=== PATIENT | female | born 1995 | race Caucasian/White ===

== ENCOUNTER 2020-07-21 08:38 | Emergency (ER) | payer OTHER, SELFPAY ==
[2020-07-21 08:46] VITALS: BP 138/73; PULSE 85; RESP 16; TEMP 36.3; O2SAT 99; BMI 35.2
--- NOTE | 2020-07-21 08:57 | ED.GIBLEED ---
HPI - GI Bleed General Chief complaint: GI Bleed Stated complaint: hemroids Time Seen by Provider: 07/21/20 08:40 Source: patient Mode of arrival: Ambulatory Limitations: no limitations History of Present Illness HPI Narrative: 25F nonsmoker, at 20 weeks with painful hemorrhoid since last night. She denies any abdominal pain, straining on the toilet, constipation, or other symptoms. She's had no vaginal bleeding, discharge, or other. She had a hemorrhoid which was poking out but she was able to push it back in yesterday. Related Data Previous Rx's Medication Instructions Recorded hydrocortisone acetate [Anusol-HC] 25 mg FL BID #24 ea 07/21/20 Allergies Allergy/AdvReac Type Severity Reaction Status Date / Time No Known Drug Allergies Allergy Verified 07/21/20 08:50 Review of Systems Constitutional Constitutional: Denies chills, Denies fatigue, Denies fever(s), Denies frequent falls, Denies lethargy and Denies weakness Eyes Eyes: Denies change in vision, Denies eye discharge, Denies irritation and Denies loss of vision ENT Ears, Nose, Mouth, and Throat: Denies change in voice, Denies dizziness, Denies neck pain, Denies sore throat and Denies throat swelling Cardiovascular Cardiovascular: Denies chest pain, Denies irregular heart rhythm, Denies lightheadedness, Denies palpitations, Denies dyspnea, Denies dyspnea on exertion and Denies orthopnea Respiratory Respiratory: Denies cough, Denies dyspnea, Denies dyspnea on exertion and Denies wheezing Gastrointestinal Gastrointestinal: Denies abdominal pain, Denies change in bowel habits, Denies diarrhea, Denies nausea and Denies vomiting Comments: rectal pain, hemorrhoid Musculoskeletal Musculoskeletal: Denies neck pain and Denies numbness Integumentary/Breasts Skin/Breast: Denies pruritus, Denies erythema, Denies rash and Denies wounds Neurologic Neurologic: Denies behavioral changes, Denies confusion, Denies dizziness, Denies frequent falls, Denies loss of vision, Denies numbness and Denies weakness Psychiatric Psychiatric: Denies anxiety, Denies behavioral changes, Denies confusion, Denies depression, Denies homicidal ideation and Denies suicidal ideation Endocrine Endocrine: Denies fatigue, Denies flushing and Denies palpitations Hematologic/Lymphatic Hematologic/Lymphatic: Denies easy bruising Allergic/Immunologic Allergic/Immunologic: Denies urticaria, Denies throat swelling and Denies wheezing Patient History Social History Smoking Status: Never smoker Smoking Status: Never smoker Substance Use Type: does not use Exam Narrative Exam Narrative: GEN: AOx3 and in mild distress EYES: Pupils are equal, round, and reactive to light and accommodation. Extraoccular muscles are intact bilaterally. There is no subconjunctival hemorrhage or exudate. CHEST: Lungs are clear to auscultation bilaterally and free of wheezes, rales, or rhonchi. Heart rate is regular rhythm, there are no murmurs, clicks, rubs, or gallops. There is no chest wall tenderness. ABD: Abdomen is soft and nontender. There is no guarding or rebound. Bowel sounds are normal in all 4 quadrants. There is no mass or organomegaly. RECAL: tender to exam. No external hemorrhoid, no bleeding. No fissure. Possible small internal hemorrhoid. EXT: Full painless ROM of all extremities with no loss of sensation or strength. SKIN: Warm, pink, and dry. No erythema or rash Initial Vital Signs Initial Vital Signs: Vital Signs Temperature 97.4 F L 07/21/20 08:46 Pulse Rate 85 07/21/20 08:46 Respiratory Rate 16 07/21/20 08:46 Blood Pressure 138/73 07/21/20 08:46 Pulse Oximetry 99 07/21/20 08:46 Course Vital Signs Vital signs: Vital Signs - 8 hr 07/21/20 08:46 Temperature 97.4 F L Pulse Rate 85 Respiratory Rate 16 Blood Pressure 138/73 Pulse Oximetry 99 Discharge Plan Departure Patient Disposition: Home Clinical Impression: Hemorrhoids Qualifiers: Hemorrhoid type: unspecified Qualified Code(s): K64.9 - Unspecified hemorrhoids Instructions: DI for Hemorrhoids Activity Restrictions/Additional Instructions: *You have been diagnosed with [hemorrhoid] *What to do: *Take medications as directed. Stay well hydrated and consider taking a stool softener as any intra-abdominal pressure increases can make you more likely to develop an external hemorrhoid *Follow up with your primary care provider in 2-3 days, call for an appointment. Let them know you were seen in the Emergency Department and that we ask that you be seen in follow up *Return to ER if you should have any new, worsening or concerning symptomss Prescriptions: New hydrocortisone acetate [Anusol-HC] 25 mg suppository 25 mg FL BID Qty: 24 RF: 0
--- NOTE | 2020-07-21 09:08 | PC.NURSE ---
stand by for rectal exam. Patient tolerated well.
== END 2020-07-21 09:21 | disposition home or self-care (01) ==
PROVIDERS: Emergency Provider Emergency Medicine
DX: O22.42 Hemorrhoids in pregnancy, second trimester (principal); Z3A.20 20 weeks gestation of pregnancy
CPT/HCPCS: 99281

== ENCOUNTER → 2020-10-24 09:52 | Outpatient (CLI) | payer OTHER, SELFPAY ==
--- NOTE | 2020-10-24 09:54 | DI.US.S_ITS ---
PROCEDURE: US OB LIMITED INDICATIONS: SIZE AND FOLLOW UP OUTFLOW TRACTS OUTSIDE/PRIOR DATING DATA: Last menstrual period (LMP): 03/02/20. LMP-based estimated date of delivery (TING): 12/07/20 . Outside reported OB ultrasound 07/24/20. Delivery date reportedly from that study 12/03/20. TECHNIQUE: Real-time scanning was performed of the fetus, with image documentation and biometric measurements. Endovaginal scanning: Not needed COMPARISON: [facility], , OB > 14 WEEKS, 07/24/2020, 7:55. FINDINGS: General: A single living intrauterine gestation is present. Presentation: Vertex. Placenta: Placental position is posterior , without previa. Amniotic fluid index: 9.1 cm, normal range is 5-24 cm. heart rate: 144 beats per minute. Maternal cervical canal: Not well seen due to positioning. biometrics: Biparietal diameter: 8.1 cm, 32 weeks 3 days Head circumference: 29.9 cm, 33 weeks 1 day Abdominal circumference: 30.5 cm, 34 weeks 3 days Femur length: 6.5 cm, 33 weeks 4 days Estimated gestational age from initial scan: 34 weeks 2 days Composite gestational age from present scan: 33 weeks 3 days Estimated weight and percentile: 2295 g, 30 second percentile Measurement variability for biometric dating: +/- 7 days from 14 weeks to 15 weeks 6 days gestation, +/- 10 days from 16 weeks to 21 weeks 6 days gestation, +/- 2 weeks from 22 weeks to 27 weeks 6 days gestation, +/- 3 weeks for 28 weeks gestation or later. weight reference: 4500 g or EFW >90/95% is considered macrosomia or large for gestational age. EFW <10% is small for gestational age. EFW 5% or less is considered intra-uterine growth restriction. Other: Not applicable. IMPRESSION: Appropriate interval growth, no anomaly seen. Normal left ventricular outflow tracts, limited normal visualization of the right ventricular outflow tracts. The delivery date is projected to be centered on 12/03/20. Dictated by: Deondre Stanley M.D. on 10/24/2020 at 14:12 Approved by: Deondre Stanley M.D. on 10/24/2020 at 14:17
== END ==
PROVIDERS: PCP Family Medicine; Referring Provider Family Medicine; Visit Provider Family Medicine
DX: Z36.2 Encounter for other antenatal screening follow-up (principal); Z3A.33 33 weeks gestation of pregnancy
CPT/HCPCS: 76815

== ENCOUNTER → 2020-11-07 10:35 | Outpatient (CLI) | payer OTHER, SELFPAY ==
[2020-11-07 12:13] LABS: Alanine Aminotransferase 13 IU/L (<35); Albumin 3.4 g/dL (3.5-5.0); Albumin Globulin Ratio 1.1 (1.0-2.8); Alkaline Phosphatase 169 U/L (38-126); Aspartate Aminotransferase 21 IU/L (14-36); Bilirubin Total 0.2 mg/dL (0.2-1.3); Bilirubin Unconjugated 0.2 mg/dL (0.0-1.1); HEMOLYSIS < 15 (0-50); Total Protein 6.4 g/dL (6.3-8.2)
[2020-11-08 10:10] LABS: Bile Acids 3.4 umol/L (0.0-10.0)
== END ==
PROVIDERS: PCP Family Medicine; Referring Provider Family Medicine; Visit Provider Family Medicine
DX: Z34.90 Encounter for supervision of normal pregnancy, unspecified, unspecified trimester (principal)
CPT/HCPCS: 36415; 80076; 82239

== ENCOUNTER → 2020-11-14 08:36 | Outpatient (CLI) | payer OTHER, SELFPAY ==
[2020-11-15 14:56] LABS: Strep Grp B PCR NEG for Grp B Strep
== END ==
PROVIDERS: PCP Family Medicine; Visit Provider Family Medicine
DX: Z34.83 Encounter for supervision of other normal pregnancy, third trimester (principal); Z3A.36 36 weeks gestation of pregnancy
CPT/HCPCS: 87653

== ENCOUNTER 2020-11-27 21:15 | Inpatient (IN) | payer OTHER, SELFPAY ==
[2020-11-27] MEDS: LACTATED RINGERS 1,000 ML 100 ML IV (22:10)
[2020-11-27 22:24] LABS: COVID19 -Nasal RAPID Negative (Negative)
[2020-11-27 22:32] LABS: Add Manual Diff / Slide Review NO; Basophils Absolute Auto 100 /uL (0-100); Basophils Percent Auto 0.7 % (0-2); Eosinophils Absolute Auto 100 /uL (0-450); Eosinophils Percent Auto 1.5 % (2-4); Hematocrit 36.3 % (36-46); Hemoglobin 11.7 g/dL (12.0-16.0); Lymphocytes Absolute Auto 2200 /uL (1100-4500); Mean Corpuscular HGB Conc 32.1 % (30-36); Mean Corpuscular Hemoglobin 24.5 PG (26-34); Mean Corpuscular Volume 76.3 fL (80-100); Monocytes Absolute Auto 500 /uL (0-900); Monocytes Percent Auto 5.5 % (3-14); Neutrophils Absolute Auto 5600 /uL (1500-7000); Neutrophils Percent Auto 66.3 % (50-75); Platelet Count 297 X10^3/uL (150-400); Red Blood Cell Count 4.76 X10^6/uL (4.0-5.2); Red Cell Distribution Width 14.2 % (11.6-14.8); White Blood Cell Count 8.4 X10^3/uL (4.5-11.0)
--- NOTE | 2020-11-28 00:43 | P.HP_ITS ---
History of Present Illness History of Present Illness Date Patient Seen: 11/28/20 Time Patient Seen: 00:44 Chief complaint: observation of labor Narrative: 25-year-old G2 para 1 estimated due date 12/07/2020 consistent with LMP which puts her at 38 weeks and 5 7 days. Patient presents to the labor and delivery floor and labor. Patient states contractions began mid morning. Started out every 15 minutes. Progressed throughout the day to tele every for 4-5 minutes when she was here to the hospital coming in. She said that she was feeling fine other than her contractions. She has had no fevers chills headache nausea. No loss of fluid. On evaluation by the nurse in the labor and delivery for she was found to be 3 cm effaced heart tones were reassuring and in active labor. Admission orders were written for and patient was admitted to the labor and delivery for. On arrival her vital signs were stable. She was afebrile. She was not ruptured. labs were reviewed by me and initial blood testing was done including CBC and COVID testing. Patient was a late transfer of care at 33 weeks from the [facility]. Patient had routine follow-up. Patient care complicated by obesity with a BMI of 34.8 and late care. Previous delivery at 41 weeks of 7 lb 7 oz male. She is here with her partner and Zuhair. Patient has no significant past medical history. No significant surgical history family history of hypertension social history patient does not smoke or use recreational drugs. labs white blood cell count 8.1 hemoglobin 12.4 platelet count 325 glucose 105 urinalysis negative for infection antibody screen negative blood type O positive antibody screen negative hepatitis as a B and hepatitis-C negative varicella immune rubella immune so fullest nonreactive quad screen within normal limits YOSEPH prep negative GC chlamydia negative HIV negative. Patient History Medical History Obesity (BMI 30.0-34.9) Surgical History [place] teeth extracted (~2014) Family & Social History Family History Mother Breast mass in female Father Hypertension Grandmother No problems noted. Grandfather No problems noted. Grandmother No problems noted. Grandfather Diabetes mellitus Amputation below knee Sister Chronic eczema Social History: household members spouse,children lives independently Yes caregiver/support person No Tobacco & Substance use: Smoking Status Never smoker alcohol intake former Substance Use Type does not use Meds Home Medications and Allergies Home Medications Medication Instructions Recorded Confirmed Type prenat.vits,leah,[id number] 1 tab PO DAILY 10/15/20 11/27/20 History Allergies Allergy/AdvReac Type Severity Reaction Status Date / Time No Known Drug Allergies Allergy Verified 11/27/20 21:48 Exam Vital Signs (past 8 hours): . General: Alert no apparent distress. Affect is appropriate. Cyn it is uncomfortable. HEENT: Neck is supple without lymphadenopathy pupils equal round and reactive. Cardio: S1-S2 regular rate and rhythm. Respiratory: Lungs clear to auscultation. Abdomen: Gravid. Extremities: Normal deep tendon reflexes trace edema. [place]: [Cyn regularly every 3-5 minutes with 60 minute contractions moderate and strength.] heart tones: Category 1 tracing 145 baseline heart rate Objective Labs Result Diagrams: 11/27/20 22:05 Labs: Laboratory Results - last 24 hr 11/27/20 11/27/20 11/27/20 22:05 22:05 22:05 WBC 8.4 RBC 4.76 Hgb 11.7 L Hct 36.3 MCV 76.3 L MCH 24.5 L MCHC 32.1 RDW 14.2 Plt Count 297 Neut % (Auto) 66.3 Lymph % (Auto) 26.0 [place] % (Auto) 5.5 Eos % (Auto) 1.5 L Baso % (Auto) 0.7 Neut # (Auto) 5600 Lymph # (Auto) 2200 [place] # (Auto) 500 Eos # (Auto) 100 Baso # (Auto) 100 SARS-CoV-2 (PCR) Negative Blood Type O Positive Antibody Screen Negative Assessment & Plan Assessment & Plan narrative: 25-year-old G2 para 1 at term in active labor. On my evaluation patient is now 9 cm. Category 1 tracing vital signs are stable she is afebrile. She appears to have had spontaneous rupture of membranes with clear fluid. She now has an epidural in and is comfortable. Continue with present care and management. labs history records were reviewed. Consents were obtained.
[2020-11-28] MEDS: OXYTOCIN 10 UNIT/ML VIAL IM (01:10)
--- NOTE | 2020-11-28 01:14 | PM.PROC.1 ---
Procedures Date/Time Date of procedure: 11/28/20 Time of procedure: 01:14 General Procedure description: Female infant born vaginally Stage I of labor: Approximately 4 hours. Patient presented to labor and delivery floor at 3 cm. Category 1 tracing vital signs are stable afebrile GBS status is negative. During stage I of labor patient made good progression. Requesting an epidural for anesthesia patient good had good anesthetic results. Patient made good progress during stage I with normal vital signs and normal temperature category 1 category 2 tracing at times. Patient labored continuously without Pitocin. After her epidural she was found to be 9 cm. She spontaneous rupture of clear fluid. She then became complete. Stage II of labor: Approximately 10 minutes. Category 1 tracing. Patient had category 1 tracing during stage II of labor. Baby made good descent through the canal. Mom pushed very effectively during the time of descent. Baby tolerated stage II well. At the delivery of the baby's head baby was found to be in the vertex position. Occiput anterior. At the delivery of the head. With a mild head repositioning bit baby delivered spontaneously without difficulty. Baby was placed on mother's abdomen had good cry. There was no nuchal cord. Stage III of labor 10 minutes. Patient was given IM Pitocin 10 units after delivery of baby. Baby had delivery of intact placenta with three-vessel cord. Patient had estimated blood loss of about 250-300 cc without the difficulty. Afterwards there was a small amount of bleeding which was improved with fundal massage. Inspection of the cervix and vagina showed no significant lacerations or tears. Placenta was evaluated and found to be intact and a 3 vessel cord. Mom and baby resting comfortably afterwards baby's Apgars were 8 and 9.
[2020-11-28] MEDS: IBUPROFEN 600 MG TABLET PO ×3 (03:44→18:43)
[2020-11-28] MEDS: ACETAMINOPHEN 325 MG TABLET 650 MG PO ×2 (08:06→14:30)
[2020-11-28] MEDS: PRENATAL VIT,CALC/IRON/FOLIC 1 TABLET 1 TAB PO (08:07)
[2020-11-28] MEDS: DOCUSATE 100 MG CAPSULE PO (08:07)
--- NOTE | 2020-11-28 08:37 | P.PN_ITS ---
Subjective Subjective Date Patient Seen: 11/28/20 Time Patient Seen: 08:37 Interval history: Patient is day 1. Vaginal delivery. Doing well. More abdominal uterus cramping than she anticipated ibuprofen helps. Bleeding is anticipated. Up walking. Has been to the bathroom. Eating breakfast. No nausea no headaches no blurry vision. She is anticipating breast-feeding. Vital signs have been stable. Exam Vital Signs (past 8 hours): General: Alert no apparent distress. Affect is appropriate. Cyn it is uncomfortable. HEENT: Neck is supple without lymphadenopathy pupils equal round and reactive. Cardio: S1-S2 regular rate and rhythm. Respiratory: Lungs clear to auscultation. Abdomen: Uterus firm. Incision clean dry and intact. Extremities: Normal deep tendon reflexes trace edema. Objective Labs Result Diagrams: 11/27/20 22:05 Labs: Laboratory Results - last 24 hr 11/27/20 11/27/20 11/27/20 22:05 22:05 22:05 WBC 8.4 RBC 4.76 Hgb 11.7 L Hct 36.3 MCV 76.3 L MCH 24.5 L MCHC 32.1 RDW 14.2 Plt Count 297 Neut % (Auto) 66.3 Lymph % (Auto) 26.0 [place] % (Auto) 5.5 Eos % (Auto) 1.5 L Baso % (Auto) 0.7 Neut # (Auto) 5600 Lymph # (Auto) 2200 [place] # (Auto) 500 Eos # (Auto) 100 Baso # (Auto) 100 SARS-CoV-2 (PCR) Negative Blood Type O Positive Antibody Screen Negative [facility] Medical History Obesity (BMI 30.0-34.9) Surgical History [place] teeth extracted (~2014) Family History Mother Breast mass in female Father Hypertension Grandmother No problems noted. Grandfather No problems noted. Grandmother No problems noted. Grandfather Diabetes mellitus Amputation below knee Sister Chronic eczema Social History marital status: number of children: 1 household members: spouse and children (1 year old son. 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 Goes to park, walks, etc. but not every day.) frequency: 3-4 times per week duration: 30-45 minutes/day Assessment & Plan Assessment & Plan narrative: day 1. Vaginal delivery Patient is doing well today. Some mild crampy abdominal pain. Ibuprofen is working well for her. Bleeding is anticipated. Urination is good. She is breast-feeding. Vital signs have been stable. Continue with current care. Activity as tolerated diet as tolerated.
[2020-11-29 06:25] LABS: Hematocrit 33.9 % (36-46); Hemoglobin 10.9 g/dL (12.0-16.0)
[2020-11-29] MEDS: DOCUSATE 100 MG CAPSULE PO (08:32)
[2020-11-29] MEDS: PRENATAL VIT,CALC/IRON/FOLIC 1 TABLET 1 TAB PO (08:33)
[2020-11-29] MEDS: IBUPROFEN 600 MG TABLET PO (08:33)
--- NOTE | 2020-11-29 13:17 | PM.DS.1 ---
History of Present Illness History of Present Illness Chief complaint: MATERNITY Narrative: 25-year-old G2 para 1 estimated due date 12/07/2020 consistent with LMP which puts her at 38 weeks and 5 7 days. Patient presents to the labor and delivery floor and labor. Patient states contractions began mid morning. Started out every 15 minutes. Progressed throughout the day to tele every for 4-5 minutes when she was here to the hospital coming in. She said that she was feeling fine other than her contractions. She has had no fevers chills headache nausea. No loss of fluid. On evaluation by the nurse in the labor and delivery for she was found to be 3 cm effaced heart tones were reassuring and in active labor. Admission orders were written for and patient was admitted to the labor and delivery for. On arrival her vital signs were stable. She was afebrile. She was not ruptured. labs were reviewed by me and initial blood testing was done including CBC and COVID testing. Patient was a late transfer of care at 33 weeks from the [facility]. Patient had routine follow-up. Patient care complicated by obesity with a BMI of 34.8 and late care. Previous delivery at 41 weeks of 7 lb 7 oz male. She is here with her partner and Zuhair. Patient has no significant past medical history. No significant surgical history family history of hypertension social history patient does not smoke or use recreational drugs. labs white blood cell count 8.1 hemoglobin 12.4 platelet count 325 glucose 105 urinalysis negative for infection antibody screen negative blood type O positive antibody screen negative hepatitis as a B and hepatitis-C negative varicella immune rubella immune so fullest nonreactive quad screen within normal limits YOSEPH prep negative GC chlamydia negative HIV negative. Discharge Providers Provider Date of admission: 11/27/20 21:15 Discharge Date: 11/29/20 Primary care physician: Mayo Malcolm MD Consults: 11/27/20 21:45 Consult to Anesthesiology Urgent Comment: Consulting Provider: Anesthesiologist Reason for consultation: labor epidural 11/29/20 01:22 Consult to Public Transportation Inspector Routine Comment: Discharge provider: Mayo Malcolm MD Summary Hospital Course Discharge Diagnosis: G2 para 139 weeks gestational age in active labor delivery of viable infant vaginally Routine care Hospital Course: Patient presented in active labor to labor and delivery floor. Patient went on and progressed to deliver a viable female vaginally. Patient had routine care. Postoperative day 1. She was ambulating tolerating diet bleeding was well controlled. Hemoglobin hematocrit was stable breast-feeding was going well. Tolerating her diet. Patient had mild lower extremity edema. No calf tenderness Objective Labs Result Diagrams: 11/29/20 06:17 Labs: Laboratory Results - last 24 hr 11/29/20 06:17 Hgb 10.9 L Hct 33.9 L PFSH Medical History Obesity (BMI 30.0-34.9) Surgical History [place] teeth extracted (~2014) Family History Mother Breast mass in female Father Hypertension Grandmother No problems noted. Grandfather No problems noted. Grandmother No problems noted. Grandfather Diabetes mellitus Amputation below knee Sister Chronic eczema Social History marital status: number of children: 1 household members: spouse and children (1 year old son. 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 Goes to park, walks, etc. but not every day.) frequency: 3-4 times per week duration: 30-45 minutes/day Discharge Plan Discharge Plan Patient Disposition: Home Discharge orders & Medications Prescriptions: New docusate sodium [DOK] 100 mg Capsule 100 mg PO DAILY Qty: 30 RF: 0 ibuprofen 600 mg Tablet 600 mg PO Q6HR PRN (Reason: Pain, Mild (1-3)) Qty: 30 RF: 0 Continued prenat.vits,leah,[id number]-gssyx Tablet 1 tab PO DAILY RF: 0 Follow up/Referrals: Mayo Malcolm MD [Primary Care Provider] - (Appointment Thursday,December at 10:30 am with ; 6 week check) Visit Report/Discharge Packet Instructions: DI for Labor and Delivery, Vaginal Visit Report Forms: Patient Portal/API, Stroke Signs & Symptoms Discharge Data Primary Care Provider: Mayo Malcolm Discharges patient from system. Discharge Date/Time: 11/29/20 11:25
== END 2020-11-29 11:25 | disposition home or self-care (01) | DRG 807 ==
PROVIDERS: Admitting Provider Family Medicine; PCP Family Medicine; Referring Provider Family Medicine; Visit Provider Family Medicine
DX: O99.214 Obesity complicating childbirth (principal); Z37.0 Single live birth; Z3A.38 38 weeks gestation of pregnancy; Z20.822 Contact with and (suspected) exposure to COVID-19
CPT/HCPCS: 01967; 36415; 59025; 59050; 59410; 85014; 85018; 85025; 86850; 86900; 86901; 87635; C9803; G0379; J2590

== ENCOUNTER 2022-12-17 06:49 | Day surgery (SDC) | payer OTHER, SELFPAY ==
[2022-12-11 13:39] VITALS: BMI 34.2
[2022-12-17] VITALS (9 sets, daily range): BP systolic 100–107; BP diastolic 58–76; PULSE 59–87; RESP 12–18; TEMP 36.4–36.6; O2SAT 96–100; BMI 34.2
--- NOTE | 2022-12-17 | PATH_ITS ---
[facility] Accession Number: [id number] No. of containers..01 Tissue . 01 Material submitted: . appendix - APPENDIX . 01 Diagnosis: Appendix, Appendectomy: Appendix with grossly obstructing fecalith. No active inflammation identified. No evidence of neoplasm. MRV 12/24/2022 1548 Local . 01 Electronically signed: . Shyam Barry MD, PhD, Pathologist NPI- [id number] . 01 Gross description: . The specimen is received in formalin labeled with the patient's name, , and appendix, and consists of a vermiform appendix measuring 5.9 x 0.7 cm with nuñez smooth serosa and mesoappendix extending out to 1.8 cm. The margin is closed with jarvis, is inked blue, and sectioning reveals the lumen to be grossly obstructed by a brown firm structure consistent with fecalith measuring 3.3 cm in greatest dimension. The douglas are nuñez and intact, and average 0.2 cm thick with no lesions or perforations identified. Sheeting Puller sections are submitted in cassette A1. ([id number]) /MRV 12/24/2022 1528 Local . 01 Pathologist provided ICD-10: R10.9, K38.1 . 01 CPT . 886363 Specimen Comment: A courtesy copy of this report has been sent to [phone] Performed at: 01 [facility] [address] [place] [address], [place], [place] [id number] MD Zuhair Simmons MD Phone: [phone]
--- NOTE | 2022-12-17 07:36 | PM.HP.1 ---
History of Present Illness History of Present Illness Date Patient Seen: 12/17/22 Time Patient Seen: 07:36 Chief complaint: SDC Narrative: 27-year-old woman who had appendicitis several months ago here for interval appendectomy today. She is feeling well no patient complaints. No interval changes in health. Please refer to the H and P from July 2022 for further detail. [facility] Medical History Obesity (BMI 30.0-34.9) Surgical History Irene teeth extracted (~2014) Family History Mother Breast mass in female Father Hypertension Grandmother No problems noted. Grandfather No problems noted. Grandmother No problems noted. 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 Goes to park, walks, etc. but not every day.) frequency: 3-4 times per week duration: 30-45 minutes/day Meds Home Medications and Allergies Allergies Allergy/AdvReac Type Severity Reaction Status Date / Time No Known Drug Allergies Allergy Verified 12/17/22 07:11 Exam Vital Signs (past 8 hours): - 12/17/22 07:26 Temperature 97.5 F L Pulse Rate 68 Respiratory Rate 17 Blood Pressure 105/73 Pulse Oximetry 97 Oxygen Delivery Method Room Air Oxygen Delivery Method Room Air Narrative Exam Narrative: General adult woman alert oriented no acute distress Chest nonlabored respiration Abdomen soft nontender nondistended Extremities warm well perfused Assessment & Plan Assessment and plan (1) Appendicitis: Qualifiers: Appendicitis type: acute appendicitis Acute appendicitis type: unspecified acute appendicitis type Qualified Code(s): K35.80 - Unspecified acute appendicitis Status: Acute Assessment & Plan narrative: 27-year-old woman with resolved appendicitis here for interval appendectomy. Overview of the operation was discussed with the patient. Operative risks including hemorrhage, infection, damage to surrounding structures were discussed. Questions have been answered she is in agreement with this plan.
--- NOTE | 2022-12-17 08:20 | SUR.OPER ---
Supine on padded OR bed, head on pillow, arms padded and tucked at sides, legs uncrossed, safety belt at thigh, tape over blanket over lower legs .
[2022-12-17] MEDS: BUPIVACAINE 0.25% (PF) VIAL 30 ML INJ (08:28)
--- NOTE | 2022-12-17 09:13 | PM.OP.1 ---
Operative Date/Time/Diagnoses Date of procedure: 12/17/22 Time of procedure: 09:13 Pre-op diagnosis: History of appendicitis Post-op diagnosis: same Procedure & Clinicians Procedure: Interval laparoscopic appendectomy Same procedure as scheduled: Yes Indications: 27-year-old woman who had appendicitis treated with antibiotic therapy here for interval appendectomy. Surgeon: Adalid Pyle Senior Architectural Designer: Warren Odonnell Operative Notes Findings: evidence of prior appendicitis without acute findings Specimen(s): other (Appendix) Estimated Blood Loss (mL): 20 Procedure in detail: Patient was brought to the operating room placed supine on the table. Bilateral lower extremity compression devices were applied. Anesthesia was induced and they intubated with an endotracheal tube. They received 3.375 g of Zosyn prior to skin incision. The left arm was tucked and appropriately padded. They were prepped and draped in sterile fashion. Time-out was performed. An infraumbilical incision was made the umbilical stalk was grasped and elevated and incision was made and the abdomen was entered atraumatically. A 12 mm balloon trocar was then placed through the incision and pneumoperitoneum of 14 mm Hg was established. The scope was then inserted and the abdomen inspected, there was no evidence of injury upon entry. Two 5 mm ports were placed under direct visualization, one in the left lower quadrant and second in the lower midline. A thorough laparoscopic evaluation was performed inspecting all four quadrants. The patient was then tilted right side up. The small bowel was then swept to the upper aspect of the abdomen. The tenie were followed to the base of the cecum where the appendix was identified. The appendix appeared to have been previously infected as were adhesions between the appendix and the anterior abdominal wall which were sharply lysed. The mesentery to the appendix was divided with [place] electrocautery. The appendix was then amputated flush at the cecum using the endo-stapler blue load. The specimen was retrieved using a endoscopic retrieval bad through the 10 mm infra-umbilical port. The right paracolic gutter and the pouch of Will were irrigated The 5 mm ports were then removed under direct visualization. The umbilical fascial incision was closed with 0 Vicryl in a figure-eight fashion. The skin wounds were irrigated and closed with 4-0 Monocryl followed by the application of Dermabond. Sponge instrument count at the end of the operation was correct. The patient tolerated procedure well was extubated and transferred to the postoperative care unit in stable condition. Complications: none Post-operative Condition: stable Disposition: same day surgery
[2022-12-17] MEDS: OXYCODONE IR 5 MG TABLET PO (09:36)
[2022-12-17] MEDS: ONDANSETRON 4 MG/2 ML INJ IV (09:36)
== END 2022-12-17 10:13 | disposition home or self-care (01) ==
PROVIDERS: Referring Provider Surgery; Visit Provider Surgery
PROC: 0DTJ4ZZ Resection of Appendix, Percutaneous Endoscopic Approach (ICD-10-PCS; CPT 44970; principal; 2022-12-17 07:45)
DX: K38.1 Appendicular concretions (principal)
CPT/HCPCS: 44970; 81025; 82962; J1100; J1170; J1885; J2250; J2405; J2704; J3010; J3490